=== PATIENT | male | born 1970 | race Caucasian/White ===

== ENCOUNTER 2020-04-22 16:56 | Outpatient (REF) | payer OTHER, SELFPAY | END 2020-04-22 16:57 | disposition home or self-care (01) | LOC: HO.BBR 16:56 | PROVIDERS: PCP Nurse Practitioner; Visit Provider Internal Medicine | DX: D75.1 Secondary polycythemia (principal) | CPT/HCPCS: 85014; 85018; 99195 ==

== ENCOUNTER 2020-07-23 15:25 | Outpatient (REF) | payer OTHER, SELFPAY | END 2020-07-23 15:26 | disposition home or self-care (01) | LOC: HO.BBR 15:25 | PROVIDERS: Visit Provider Internal Medicine | DX: D75.1 Secondary polycythemia (principal) | CPT/HCPCS: 36415; 85014; 85018; 99195 ==

== ENCOUNTER 2020-10-22 15:38 | Outpatient (REF) | payer OTHER, SELFPAY | END 2020-10-22 15:39 | disposition home or self-care (01) | LOC: HO.BBR 15:38 | PROVIDERS: Visit Provider Internal Medicine | DX: D75.1 Secondary polycythemia (principal) | CPT/HCPCS: 85014; 85018; 99195 ==

== ENCOUNTER 2021-01-28 14:37 | Outpatient (REF) | payer OTHER, SELFPAY | END 2021-01-28 14:38 | disposition home or self-care (01) | LOC: HO.BBR 14:37 | PROVIDERS: PCP Internal Medicine; Visit Provider Internal Medicine | DX: D75.1 Secondary polycythemia (principal) | CPT/HCPCS: 85014; 85018; 99195 ==

== ENCOUNTER 2021-05-05 13:49 | Outpatient (REF) | payer OTHER, SELFPAY | END 2021-05-05 13:50 | disposition home or self-care (01) | LOC: HO.BBR 13:49 | PROVIDERS: Visit Provider Internal Medicine | DX: D75.1 Secondary polycythemia (principal) | CPT/HCPCS: 85014; 85018; 99195 ==

== ENCOUNTER 2021-08-21 13:47 | Outpatient (REF) | payer OTHER, SELFPAY | END 2021-08-21 13:48 | disposition home or self-care (01) | LOC: HO.BBR 13:47 | PROVIDERS: Visit Provider Internal Medicine | DX: D75.1 Secondary polycythemia (principal) | CPT/HCPCS: 85014; 85018; 99195 ==

== ENCOUNTER 2021-11-18 14:52 | Outpatient (REF) | payer OTHER, SELFPAY | END 2021-11-18 14:53 | disposition home or self-care (01) | LOC: HO.BBR 14:52 | PROVIDERS: Visit Provider Internal Medicine | DX: D75.1 Secondary polycythemia (principal) | CPT/HCPCS: 85018; 99195 ==

== ENCOUNTER 2022-02-18 14:58 | Outpatient (REF) | payer OTHER, SELFPAY | END 2022-02-18 14:59 | disposition home or self-care (01) | LOC: HO.BBR 14:58 | PROVIDERS: Visit Provider Internal Medicine | DX: D75.1 Secondary polycythemia (principal) | CPT/HCPCS: 85018; 99195 ==

== ENCOUNTER 2022-05-21 15:01 | Outpatient (REF) | payer OTHER, SELFPAY | END 2022-05-21 15:02 | disposition home or self-care (01) | LOC: HO.BBR 15:01 | PROVIDERS: Visit Provider Internal Medicine | DX: D75.1 Secondary polycythemia (principal) | CPT/HCPCS: 85018; 99195 ==

== ENCOUNTER 2022-08-20 13:52 | Outpatient (REF) | payer OTHER, SELFPAY | END 2022-08-20 13:53 | disposition home or self-care (01) | LOC: HO.BBR 13:52 | PROVIDERS: Visit Provider Internal Medicine | DX: D75.1 Secondary polycythemia (principal) | CPT/HCPCS: 85018 ==

== ENCOUNTER 2022-08-31 13:56 | Outpatient (REF) | payer OTHER, SELFPAY | END 2022-08-31 13:57 | disposition home or self-care (01) | LOC: HO.BBR 13:56 | PROVIDERS: Visit Provider Internal Medicine | DX: Z13.89 Encounter for screening for other disorder (principal) ==

== ENCOUNTER 2022-11-25 14:56 | Outpatient (REF) | payer OTHER, SELFPAY | END 2022-11-25 14:57 | disposition home or self-care (01) | LOC: HO.BBR 14:56 | PROVIDERS: Visit Provider Internal Medicine | DX: D75.1 Secondary polycythemia (principal) | CPT/HCPCS: 85014; 85018; 99195 ==

== ENCOUNTER 2023-02-23 15:35 | Outpatient (REF) | payer OTHER, SELFPAY | END 2023-02-23 15:36 | disposition home or self-care (01) | LOC: HO.BBR 15:35 | PROVIDERS: Visit Provider Internal Medicine | DX: D75.1 Secondary polycythemia (principal) | CPT/HCPCS: 85014; 85018; 99195 ==

== ENCOUNTER 2023-05-23 14:42 | Outpatient (REF) | payer OTHER, SELFPAY | END 2023-05-23 14:43 | disposition home or self-care (01) | LOC: HO.BBR 14:42 | PROVIDERS: PCP Nurse Practitioner Family; Visit Provider Internal Medicine | DX: C94.6 Myelodysplastic disease, not elsewhere classified (principal) | CPT/HCPCS: 85018; 99195 ==

== ENCOUNTER 2023-08-30 12:22 | Outpatient (REF) | payer OTHER, SELFPAY | END 2023-08-30 12:23 | disposition home or self-care (01) | LOC: HO.BBR 12:22 | PROVIDERS: PCP Nurse Practitioner Family; Visit Provider Internal Medicine | DX: C94.6 Myelodysplastic disease, not elsewhere classified (principal) | CPT/HCPCS: 85018; 99195 ==

== ENCOUNTER 2023-11-03 13:07 | Outpatient (REF) | payer OTHER, SELFPAY | END 2023-11-03 13:08 | disposition home or self-care (01) | LOC: HO.BBR 13:07 | PROVIDERS: PCP Nurse Practitioner Family; Visit Provider Internal Medicine | DX: C94.6 Myelodysplastic disease, not elsewhere classified (principal) | CPT/HCPCS: 85018; 99195 ==

== ENCOUNTER 2024-01-19 13:56 | Outpatient (REF) | payer OTHER, SELFPAY | END 2024-01-19 13:57 | disposition home or self-care (01) | LOC: HO.BBR 13:56 | PROVIDERS: PCP Nurse Practitioner Family; Visit Provider Internal Medicine | DX: D47.1 Chronic myeloproliferative disease (principal) | CPT/HCPCS: 85018; 99195 ==

== ENCOUNTER 2024-07-24 15:27 | Outpatient (REF) | payer BC, SELFPAY | END 2024-07-24 15:28 | disposition home or self-care (01) | LOC: HO.BBR 15:27 | PROVIDERS: PCP Internal Medicine; Visit Provider Internal Medicine | DX: D47.1 Chronic myeloproliferative disease (principal) | CPT/HCPCS: 85014; 85018; 99195 ==

== ENCOUNTER 2025-01-21 14:53 | Outpatient (REF) | payer OTHER, SELFPAY ==
--- OUTSIDE RECORDS SUMMARY | 2025-01-21 15:39 | XMS_ITS | Clinical Summary ---
Author Organization [facility] Address [address] [place] [address] Phone Care Team Providers Care Buhr Mill Operator Name Role Phone Valentine Michaud DO Primary Care Provider Allergies No known active allergies Medications OMEGA-3 FATTY ACIDS ORAL Take by mouth. Active aspirin 81 mg EC tablet Take 1 tablet (81 mg total) by mouth 1 (one) time each day. Active simvastatin (ZOCOR) 80 mg tablet Take 1 tablet (80 mg total) by mouth at bedtime. Active hydroxyurea (HYDREA) 500 mg capsule Take 1 capsule (500 mg total) by mouth 1 (one) time each day 30 capsule 07/31/2024 Active Medical History Medical History Date Comments Essential thrombocytosis (CM S/HCC V24, CMS/HCC V28) DX:Essential thrombocytosis (HCC) Hyperlipidemia DX:Hyperlipidemi a Family History Medical History Relation Name Comments Cancer Father colon Relation Name Status Comments Father Social History Tobacco Use Types Packs/Day Years Used Date Smoking Tobacco: Never Smokeless Tobacco: Never Alcohol Use Standard Drinks/Week Comments Yes 0 (1 standard drink = 0.6 oz pur e alcohol) Sex and Gender Information Value Date Recorded Sex Assigned at Not on file Legal Sex Male 10:25 AM EST Gender Identity Not on file Sexual Orientation Not on file Obstetrics History Last Filed Vital Signs Vital Sign Reading Time Taken Comments Blood Pressure 172/85 02/07/2024 2:46 PM EDT Sitting Left arm Pulse 72 02/07/2024 2:46 PM EDT Temperature - - Respiratory Rate - - Oxygen Saturation - - Inhaled Oxygen Concentration - - Weight 104 kg (228 lb 9.6 oz) 02/07/2024 2:46 PM EDT Height 182.9 cm (6') 03/08/2023 10:10 AM EDT Body Mass Index 31 03/08/2023 10:10 AM EDT Plan of Treatment Upcoming Encounters Date Type Department Care Team (Late st Contact Info) Description 02/13/2025 3:00 PM EDT Office Visit [facility] Hematology Oncology [address] [place] [id number] Courtney Hoover MD [address] [place] [address] Health Maintenance Due Date Last Done Comments DTaP,Tdap,and Td Vaccines (1 - Tdap) 1988 Hepatitis B Vaccines (1 of 3 - 19+ 3-dose series) 1988 Pneumococcal Vaccine: 50+ Years (1 of 2 - PCV) 1988 Cholesterol Screening (Lipid Panel) 06/12/2022 Colorectal Cancer Screening: Colonoscopy 06/12/2022 HIV Screening 06/12/2022 Hepatitis C Screening 06/12/2022 Medicare Annual Wellness Visit 06/12/2022 Social Influencers of Health Screening 06/12/2022 COVID-19 Vaccine (4 - 2023-2 5 season) 2024 08/07/2021, 11/26/2020, 10/29/2020 Depression Screening 07/04/2024 Influenza Vaccine (#1) 2025 Zoster Vaccines Completed 04/25/2024, 01/26/2024 HIB Vaccines Aged Out No longer eligi ble based on patient's age to complete this topic HPV Vaccines Aged Out No longer eligi ble based on patient's age to complete this topic Hepatitis A Vaccines Aged Out No long er eligible based on patient's age to complete this topic IPV Vaccines Aged Out No longer eligi ble based on patient's age to complete this topic MMR Vaccines Aged Out No longer eligi ble based on patient's age to complete this topic Meningococcal ACWY Vaccine Aged Out N o longer eligible based on patient's age to complete this topic Meningococcal B Vaccine Aged Out No l onger eligible based on patient's age to complete this topic RSV Immunization Patients Under 20 months Aged Out No longer eligible b ased on patient's age to complete this topic Varicella Vaccines Aged Out No longer eligible based on patient's age to complete this topic Insurance [employer] [facility] [facility] Care Teams Buhr Mill Operator Relationship Specialty Start Date End Date Valentine Michaud DO PCP - General Internal Medicine 09/17/20
--- OUTSIDE RECORDS SUMMARY | 2025-01-21 15:39 | XMS_ITS | Clinical Summary ---
Author Organization [facility] Address [address] [place] [address] Care Team Providers Care Mds Coordinator Name Role Phone Valentine Michaud Primary Care Provide r Allergies No known active allergies Medications Medication Sig Dispensed Refills Start Date End Date Status [place]-3 Fatty Acids (FISH OIL PO) Take by mouth. 0 Active aspirin EC 81 MG tablet Take 1 tablet (81 mg total) by mouth daily. 0 Active simvastatin (ZOCOR) 80 MG tablet Take 1 tablet (80 mg total) by mouth every night at bedtime. 0 Active hydroxyurea (HYDREA) 500 MG capsule TAKE 1 CAPSULE BY MOUTH EVERY DAY 90 capsule 3 05/02/2024 Active Active Problems No known active problems Family History Medical History Relation Name Comments Cancer Father colon Relation Name Status Comments Father Social History Tobacco Use Types Packs/Day Years Used Date Smoking Tobacco: Never Smokeless Tobacco: Never Alcohol Use Standard Drinks/Week Comments Yes 0 (1 standard drink = 0.6 oz pur e alcohol) social Sex and Gender Information Value Date Recorded Sex Assigned at Not on file Gender Identity Not on file Sexual Orientation Not on file Job Start Date Occupation Industry Not on file Not on file Not on file Last Filed Vital Signs Vital Sign Reading Time Taken Comments Blood Pressure 172/85 02/07/2024 2:46 PM EDT Pulse 72 02/07/2024 2:46 PM EDT Temperature 36.8 C (98.2 F) 02/07/2024 2:46 PM EDT Respiratory Rate - - Oxygen Saturation 98% 02/07/2024 2:46 PM EDT Inhaled Oxygen Concentration - - Weight 103.7 kg (228 lb 9.6 oz) 02/07/2024 2:46 PM EDT Height 182.9 cm (6') 03/08/2023 10:10 AM EDT Body Mass Index 31 03/08/2023 10:10 AM EDT Plan of Treatment Health Maintenance Due Date Last Done Comments Hepatitis B Vaccines (1 of 3 - 3-dose series) 1969 Hepatitis C Screening 1969 COVID-19 Vaccine (#1) 1974 Pneumococcal Vaccine (1 of 2 - PCV) 11/02/1975 Depression Screening 1981 Preventative Health Evaluation 11/02/1987 DTap / Tdap / Td (1 - Tdap) 1988 Shingrix-Zoster Vaccine (1 of 2) 1988 Colon Cancer Screening (Colonoscopy) 2014 Influenza Vaccine (#1) 2025 RSV Ped < 20 months Aged Out No longe r eligible based on patient's age to complete this topic Insurance Payer Benefit Plan / Group Subscriber ID Effective Dates Phone Address [facility] [id number] 2021-Present [address] [facility] [address] [place] [address] HMO Care Teams Mds Coordinator Relationship Specialty Start Date End Date Valentine Michaud DO [address] [place] [address] [place] [phone] PCP - General Internal Medicine 09/17/20
--- OUTSIDE RECORDS SUMMARY | 2025-01-21 15:39 | XMS_ITS | Clinical Summary ---
Author Organization [facility] Address [address] [place] [address] Phone Care Team Providers Care Lip Of Shank Cutter Name Role Phone Valentine Michaud DO Primary Care Provide r Allergies No known active allergies Medications aspirin 81 MG EC tablet Take 81 mg by mouth daily. Active omega 4-ufq-yvi-fish oil 1,000 mg (120 mg-180 mg) Cap Take 1 capsule by mouth daily. Active therapeutic multivitamin tablet Take 1 tablet by mouth daily. Active simvastatin (ZOCOR) 40 MG tabletIndications: mixed hyperlipidemia Take 40 mg by mouth nightly. Indications: MIXED HYPERLIPIDEMIA Active hydroxyurea (HYDREA) 500 mg capsuleIndications :polycythemia vera Take 200 mg by mouth daily. Indications: POLYCYTHEMIA VERA Active Social History Tobacco Use Types Packs/Day Years Used Date Smoking Tobacco: Never Smokeless Tobacco: Never Alcohol Use Standard Drinks/Week Comments Yes 1 (1 standard drink = 0.6 oz pur e alcohol) Education Answer Date Recorded Are you interested in more education? Not on bulmaro e 10/29/2022 Are you concerned about learning? Not on file 10/29/2022 No 10/29/2022 No 10/29/2022 Digital Access Answer Date Recorded No 11/27/2022 No 11/27/2022 Reliable internet access at home? Not on file 11/27/2022 Device with a working camera? Not on file Sex and Gender Information Value Date Recorded Sex Assigned at Not on file Legal Sex Male 9:35 PM EDT Gender Identity Not on file Sexual Orientation Not on file Last Filed Vital Signs Vital Sign Reading Time Taken Comments Blood Pressure 108/45 03/06/2021 9:06 AM EDT Pulse 72 03/06/2021 9:06 AM EDT Temperature 35.8 C (96.4 F) 03/06/2021 9:06 AM EDT Respiratory Rate 16 03/06/2021 9:06 AM EDT Oxygen Saturation 98% 03/06/2021 9:16 AM EDT Inhaled Oxygen Concentration - - Weight 99.8 kg (220 lb) 03/04/2021 3:06 PM EDT Height 182.9 cm (6') 03/04/2021 3:06 PM EDT Body Mass Index 29.84 03/04/2021 3:06 PM EDT Plan of Treatment Health Maintenance Due Date Last Done Comments LIPID PANEL 1969 DEPRESSION SCREENING 1981 HEPATITIS C SCREENING 11/02/1987 HIV ONE-TIME SCREENING (18-6 5 YEARS) 11/02/1987 COLOGUARD 2014 FIT TEST 2014 FOBT 2014 SIGMOIDOSCOPY 2014 VIRTUAL COLONOSCOPY 2014 Adult Td,Tdap Booster 11/19/2017 11/20/2007 PNEUMOCOCCAL VACCINES (50+ years) (1 of 1 - PCV) 11/02/2019 ZOSTER VACCINES (1 of 2) 11/02/2019 COVID-19 VACCINE (2 - 2023-2 5 season) 2024 10/29/2020 COLONOSCOPY 03/06/2031 03/06/2021, 08/23/2017 COLORECTAL CANCER SCREENING 03/06/2031 SMOKING STATUS SCREENING (On ce After 26 Yrs) Completed 03/06/2021 HEPATITIS A VACCINES Aged Out No long er eligible based on patient's age to complete this topic HIB VACCINES Aged Out No longer eligi ble based on patient's age to complete this topic MENINGOCOCCAL VACCINES (ACWY) Aged Out No longer eligible based on patient's age to complete this topic MENINGOCOCCAL VACCINES (B) Aged Out N o longer eligible based on patient's age to complete this topic Medical Devices Not on file Procedures Procedure Name Priority Date/Time Associated Diagnosis Comments ENDOSCOPY, COLON 03/06/2021 8:33 AM EDT from Last 3 Months or Most Recently Relevant to Health Maintenance Results * ENDOSCOPY, COLON (03/06/2021 8:33 AM EDT) Narrative Transcriptions Alejandro Mccullough MD - 03/06/2021 8:33 AM EDT Patient Name: Mani Santos Attending MD:: ALEJANDRO MCCULLOUGH MD Procedure Date: 03/06/2021 8:33 AM Date of : 1970 Age: 50 Admit Type: Outpatient Gender: Male Room: [place] [address] Referring MD: Parminder Aguilar MD Exam Type: Colonoscopy Indications: Hematochezia Medications: Monitored Anesthesia Care Procedure: Informed consent was obtained from the patient after discussion of the indications, limitations, alternatives, benefits, and risks of the procedure. Risks specifically discussed include but are not limited to medication reactions, missed lesions, bleeding, perforation, or the need for emergentsurgery. Throughout the procedure, the patient's bloodpressure, pulse, end-tidal CO2, and oxygen saturations were monitored continuously. The Olympus adult variable colonoscope [id number] #4was introduced through the anus and advanced to the terminal ileum. The colonoscopy was performedwithout difficulty. The patient tolerated the procedurewell. The quality of the bowel preparation was good. Complications: No immediate complications. Estimated blood loss:None. Findings: Hemorrhoids were found on perianal exam. There are large, thrombosed, bleeding prolapsedhemmorrhoids. A 5 mm polyp was found in the ascending colon. The polyp was sessile. The polyp was removed with a cold snare. Resection and retrieval were complete. The rectum, recto-sigmoid colon, sigmoid colon, descending colon, splenic flexure, transverse colon, hepatic flexure, cecum, appendiceal orifice,ileocecal valve and rectum (on retroflexion) appearednormal. Impression: - Hemorrhoids found on perianal exam. - One 5 mm polyp in the ascending colon, removedwith a cold snare. Resected and retrieved. - The rectum, recto-sigmoid colon, sigmoid colon, descending colon, splenic flexure, transverse colon, hepatic flexure, cecum, appendiceal orifice and ileocecal valve are normal. Recommendation: - Discharge patient to home. - Resume previous diet. - Continue present medications. - Await pathology results. - Repeat colonoscopy in 7 years for surveillance. - Refer to a surgeon at appointment to bescheduled. ALEJANDRO MCCULLOUGH MD 03/06/2021 9:05:50 AM This report has been signed electronically. Number of Addenda: 0 Note Initiated On: 03/06/2021 8:33 AM Procedure Code(s): --- Professional --- 96855, Colonoscopy, flexible; with removal of tumor(s), polyp(s), or other lesion(s) by snare technique --- Technical --- 72321, Colonoscopy, flexible; with removal of tumor(s), polyp(s), or other lesion(s) by snare technique Diagnosis Code(s): --- Professional --- K64.9, Unspecified hemorrhoids D12.2, Benign neoplasm of ascending colon K92.1, Melena (includes Hematochezia) --- Technical --- K64.9, Unspecified hemorrhoids D12.2, Benign neoplasm of ascending colon K92.1, Melena (includes Hematochezia) CPT copyright 2018 [employer]. All rights reserved. The codes documented in this report are preliminary and upon battery container tester reviewmay be revised to meet current compliance requirements. Procedure Date: 03/06/2021 8:33:[address] [place] [id number] Parminder Aguilar MD GI PROCEDURE ORDERABLES Final Result from Last 3 Months or Most Recently Relevant to Health Maintenance Insurance [facility] Care Teams Lip Of Shank Cutter Relationship Specialty Start Date End Date Valentine Michaud DO [address] [place] [phone] PCP - General Internal Medicine 03/06/21 Additional Source Comments The information contained in this document represents components of the legal health record. It is not the complete legal health record.[facility]
== END 2025-01-21 14:54 | disposition home or self-care (01) ==
LOC: HO.BBR 14:53
PROVIDERS: PCP Internal Medicine; Visit Provider Internal Medicine
DX: D47.1 Chronic myeloproliferative disease (principal)
CPT/HCPCS: 85018; 99195